=== PATIENT | male | born 1945 | race Caucasian/White ===

== ENCOUNTER 2017-05-02 13:45 | Emergency (ER) | payer MEDICARE ==
[2017-05-02 14:32] VITALS: BP 133/69
--- NOTE | 2017-05-02 15:33 | EDM.PDOC ---
ED HPI GENERAL MEDICAL PROBLEM - General Chief Complaint: Back Pain or Injury Stated Complaint: BACK PAIN Time Seen by Provider: 05/02/17 14:21 Source of Information: Reports: Patient History Limitations: Reports: No Limitations - History of Present Illness INITIAL COMMENTS - FREE TEXT/NARRATIVE: The patient presents with low back pain and neck pain and anxiety. The patient has been having problems with his neck and low back. He is scheduled to see Dr Boyd later in the month. He has been anxious and having more pain. He has been on clonazepam for 30 years. This was stopped a few weeks ago. He is anxious from it. He has no chest pain or shortness of breath. He has no nausea or vomiting. He has no abdominal pain. He has no numbness or weakness, bowel or bladder problems. Onset: Gradual Duration: Week(s): (2) Quality: Reports: Sharp Severity: Moderate Improves with: Reports: None Worsens with: Reports: Movement Associated Symptoms: Reports: No Other Symptoms Neck Pain Score (Numeric/FACES): 10 - Related Data Allergies Allergy/AdvReac Type Severity Reaction Status Date / Time No Known Allergies Allergy Verified 07/11/16 11:16 Home Meds: Home Meds Aspirin [Adult Low Dose Aspirin EC] 81 mg PO DAILY 05/02/17 [History] Cholecalciferol (Vitamin D3) [Vitamin D3] 1,000 units PO DAILY 05/02/17 [History ] ClonazePAM [KlonoPIN] 1 mg PO DAILY PRN #60 tab 05/02/17 [Rx] Doxazosin [Cardura] 2 mg PO DAILY 05/02/17 [History] Meloxicam [Mobic] 15 mg PO DAILY 05/02/17 [History] Metoprolol Succinate [Toprol XL] 200 mg PO DAILY 05/02/17 [History] Multivitamin with Minerals [Multiple Vitamin] 1 tab PO DAILY 05/02/17 [History] Thiamine HCl [B-1] 100 mg PO DAILY 05/02/17 [History] amLODIPine [Norvasc] 10 mg PO BEDTIME 05/02/17 [History] Past Medical History Cardiovascular History: Reports: Hypertension Respiratory History: Reports: COPD, Other (See Below) Other Respiratory History: not smoking related Genitourinary History: Reports: Other (See Below) Other Genitourinary History: prostate cancer history Musculoskeletal History: Reports: Back Pain, Chronic Other Musculoskeletal History: Degenerative disc disease Psychiatric History: Reports: Anxiety Oncologic (Cancer) History: Reports: Prostate Social & Family History - Tobacco Use Smoking Status *Q: Never Smoker - Caffeine Use Caffeine Use: Reports: Soda - Alcohol Use Days Per Week of Alcohol Use: 6 Number of Drinks Per Day: 2 Total Drinks Per Week: 12 - Recreational Drug Use Recreational Drug Use: No ED ROS GENERAL - Review of Systems Review Of Systems: See Below Constitutional: Reports: No Symptoms HEENT: Reports: No Symptoms Respiratory: Reports: No Symptoms Cardiovascular: Reports: No Symptoms Endocrine: Reports: No Symptoms GI/Abdominal: Reports: No Symptoms : Reports: No Symptoms Musculoskeletal: Reports: Neck Pain, Back Pain Neurological: Reports: No Symptoms ED EXAM,LOWER BACK PAIN/INJURY - Physical Exam Exam: See Below Exam Limited By: No Limitations General Appearance: Alert, No Apparent Distress Ears: Normal External Exam Nose: Normal Inspection Head: Atraumatic, Normocephalic Neck: Normal Inspection Respiratory/Chest: No Respiratory Distress, Lungs Clear, Normal Breath Sounds Cardiovascular: Regular Rate, Rhythm, No Edema, No Murmur GI/Abdominal: Soft, Non-Tender, No Organomegaly, No Mass Back Exam: Other (Pain upon palpation to his neck and low back.) Course - Vital Signs Last Recorded V/S: Last Vital Signs Temp 97.6 F 05/02/17 14:28 Pulse 67 05/02/17 14:28 Resp 18 05/02/17 14:28 BP 133/69 05/02/17 14:28 Pulse Ox 100 05/02/17 14:28 Departure - Departure Time of Disposition: 15:35 Disposition: Home, Self-Care 01 Condition: Good Clinical Impression: Anxiety, Neck pain Chronic low back pain Qualifiers: Back pain laterality: unspecified Sciatica presence: without sciatica Qualified Code(s): M54.5 - Low back pain; G89.29 - Other chronic pain; G89.29 - Other chronic pain - Discharge Information Prescriptions: ClonazePAM [KlonoPIN] 1 mg PO DAILY PRN #60 tab PRN Reason: Anxiety Referrals: Pamela Matta, PH[employer]GR[employer] ATTENDANT [Primary Care Provider] - Additional Instructions: Take your medication as prescribed. Keep your appointment with Dr Boyd. Please return if you are worse.
== END 2017-05-02 16:22 | disposition home or self-care (01) ==
LOC: JD.ED 13:45
DX: F41.9 Anxiety disorder, unspecified (principal); M54.2 Cervicalgia; M54.5 Low back pain; G89.29 Other chronic pain; I10 Essential (primary) hypertension; J44.9 Chronic obstructive pulmonary disease, unspecified; Z79.899 Other long term (current) drug therapy; Z79.82 Long term (current) use of aspirin
CPT/HCPCS: 99283

== ENCOUNTER 2017-08-06 08:21 | Emergency (ER) | payer MEDICARE ==
--- NOTE | 2017-08-06 08:48 | EDM.PDOCBH ---
ED HPI GENERAL MEDICAL PROBLEM - General Chief Complaint: Behavioral/Psych Stated Complaint: ANXIETY Time Seen by Provider: 08/06/17 08:47 - History of Present Illness INITIAL COMMENTS - FREE TEXT/NARRATIVE: 71-year-old male presents to the emergency room with multiple complaints. The patient has anxiety and he's had chronic anxiety for many years she's been on clonazepam for over 30 years is done fairly well with this however he's been off his medication for the last several months and is overall situation is gotten worse his back pain causes him lots of grief and tends to aggravate his anxiety. His regular physician and the [facility] both do not want to prescribe anything for anxiety at this point however, according to the patient nothing else has been offered to help alleviate the symptoms. The patient is not having any chest pain chest pressure no abdominal pain no nausea vomiting constipation or diarrhea however the patient get a little nauseous after his anxiety gets worked up. Back Pain Score (Numeric/FACES): 7 - Related Data Allergies Allergy/AdvReac Type Severity Reaction Status Date / Time No Known Allergies Allergy Verified 07/11/16 11:16 Home Meds: Home Meds Aspirin [Adult Low Dose Aspirin EC] 81 mg PO DAILY 05/02/17 [History] Cholecalciferol (Vitamin D3) [Vitamin D3] 1,000 units PO DAILY 05/02/17 [History ] ClonazePAM [KlonoPIN] 1 mg PO DAILY PRN #60 tab 05/02/17 [Rx] Doxazosin [Cardura] 2 mg PO DAILY 05/02/17 [History] Meloxicam [Mobic] 15 mg PO DAILY 05/02/17 [History] Metoprolol Succinate [Toprol XL] 200 mg PO DAILY 05/02/17 [History] Multivitamin with Minerals [Multiple Vitamin] 1 tab PO DAILY 05/02/17 [History] Thiamine HCl [B-1] 100 mg PO DAILY 05/02/17 [History] amLODIPine [Norvasc] 10 mg PO BEDTIME 05/02/17 [History] LORazepam [Ativan] 0.5 mg PO Q12H PRN #15 tablet 08/06/17 [Rx] Tamsulosin HCl [Flomax] 0.4 mg PO DAILY 08/06/17 [History] Past Medical History Cardiovascular History: Reports: Hypertension Respiratory History: Reports: COPD, Other (See Below) Other Respiratory History: not smoking related Genitourinary History: Reports: Other (See Below) Other Genitourinary History: prostate cancer history Musculoskeletal History: Reports: Back Pain, Chronic Other Musculoskeletal History: Degenerative disc disease Psychiatric History: Reports: Anxiety Oncologic (Cancer) History: Reports: Prostate Social & Family History - Tobacco Use Smoking Status *Q: Never Smoker - Caffeine Use Caffeine Use: Reports: Soda - Alcohol Use Days Per Week of Alcohol Use: 6 Number of Drinks Per Day: 2 Total Drinks Per Week: 12 - Recreational Drug Use Recreational Drug Use: No ED ROS GENERAL - Review of Systems Review Of Systems: See Below Constitutional: Reports: No Symptoms. Denies: Fever, Chills HEENT: Reports: No Symptoms Respiratory: Reports: No Symptoms Cardiovascular: Reports: No Symptoms GI/Abdominal: Reports: Nausea. Denies: Abdominal Pain, Constipation, Diarrhea, Distension : Reports: No Symptoms Musculoskeletal: Reports: Back Pain, Other (It sounds like he has multiple arthritic issues) Skin: Reports: No Symptoms Neurological: Reports: No Symptoms ED EXAM, BEHAVIORAL HEALTH - Physical Exam Exam: See Below Exam Limited By: No Limitations General Appearance: Alert, No Apparent Distress Head: Atraumatic, Normocephalic Neck: Normal Inspection, Supple, Non-Tender, Full Range of Motion Respiratory/Chest: No Respiratory Distress, Lungs Clear, Normal Breath Sounds Cardiovascular: Normal Peripheral Pulses, Regular Rate, Rhythm, No Edema, No Murmur GI/Abdominal: Normal Bowel Sounds, Soft, Non-Tender Extremities: Normal Inspection, No Pedal Edema Neurological: Alert, Normal Mood/Affect, Normal Cognition COURSE, BEHAVIORAL HEALTH COMP - Course Vital Signs: Last Vital Signs Temp 36.3 C 08/06/17 08:29 Pulse 86 08/06/17 08:29 Resp 20 08/06/17 08:29 BP Pulse Ox 99 08/06/17 08:29 Re-Assessment/Re-Exam: The patient has long-term degenerative joint disease it is uncertain whether the meloxicam is working I have recommended to the patient that he try Tylenol 650 mg 4 times a day give this several days and see if this helps. For his anxiety I can understand the risk of long-term benzodiazepines however the patient is losing functional abilities excessive concerns of his anxiety and symptoms of his anxieties not get any sleep I been offered low-dose lorazepam once or twice daily for the short term to see if this works he also stresses that his back pain seems to trigger his anxiety so if the Tylenol gets control of his back pain may be he does not need as aggressive anxiety treatment the near future. Other considerations the patient's is not sure he is getting benefit from the meloxicam with the side effects from this a trial off of this may be considered if the patient's get some relief from Tylenol. Departure - Departure Time of Disposition: 09:14 Disposition: Home, Self-Care 01 Clinical Impression: Anxiety, Degenerative joint disease (DJD) of lumbar spine - Discharge Information Prescriptions: LORazepam [Ativan] 0.5 mg PO Q12H PRN #15 tablet PRN Reason: Anxiety Referrals: Kylah Matta MD [Primary Care Provider] - Forms: ED Department Discharge Additional Instructions: Return to the emergency room with any questions problems worsening symptoms. Use Tylenol 650 mg 4 times daily for arthritis pain it may take a while for this to show benefit. He been started on Ativan this is similar to the clonazepam. He is a dominant very limited basis. It is my hopes that her back pain will improve with the Tylenol. It seems that the back pain triggers the anxiety and if we can control the back pain better hopefully the anxiety will be less of an issue for you.
== END 2017-08-06 09:29 | disposition home or self-care (01) ==
LOC: JD.ED 08:21
DX: F41.9 Anxiety disorder, unspecified (principal); M47.816 Spondylosis without myelopathy or radiculopathy, lumbar region; I10 Essential (primary) hypertension; J44.9 Chronic obstructive pulmonary disease, unspecified; Z79.899 Other long term (current) drug therapy; Z79.82 Long term (current) use of aspirin
CPT/HCPCS: 99283

== ENCOUNTER 2017-11-15 09:54 | Emergency (ER) | payer MEDICARE ==
[2017-11-15 10:03] VITALS: BP 176/99
[2017-11-15] MEDS ORDERED: LORazepam 0.5 MG Tab PO ONE (10:22)
[2017-11-15] MEDS ORDERED: Sodium Chloride 0.9% 10 ML Syringe FLUSH PRN (10:22)
[2017-11-15] MEDS ORDERED: HYDROmorphone 0.5 MG/0.5 ML SYRINGE IVPUSH ONE (10:22)
[2017-11-15] MEDS ORDERED: Sodium Chloride 0.9% 1,000 ML IV SCH ×2 (10:30→14:30)
--- NOTE | 2017-11-15 10:59 | EDM.PDOC ---
ED HPI GENERAL MEDICAL PROBLEM - General Chief Complaint: Back Pain or Injury Stated Complaint: [facility] Time Seen by Provider: 11/15/17 10:05 Source of Information: Reports: Patient, EMS, RN Notes Reviewed - History of Present Illness INITIAL COMMENTS - FREE TEXT/NARRATIVE: 72-year-old male has been brought in by ambulance for evaluation of low back pain. He does suffer from chronic low back pain apparently secondary to a lot of degenerative disease of his low back. He states he has seen multiple providers, has had CAT scans, MRIs, Dr. Boyd with the spine clinic in [place] and "nothing gets done". However when asked what he is currently taking for his low back discomfort he states he's been off of all meds including his meds for hypertension for a month or longer. He states anxiety also is a big issue for him and any providers have "stopped prescribing the clonazepam that he is taken for what sounds like around 20 or 30 years. Therefore he is stop taking all other meds as well the pain is primarily in his low back, worse with motion. He states his appetite is down, not eating or drinking well the last few days. There's been no recent fall or injury. The pain does not radiate down into either leg. Lower Back Pain Score (Numeric/FACES): 5 - Related Data Allergies Allergy/AdvReac Type Severity Reaction Status Date / Time No Known Allergies Allergy Verified 11/15/17 09:59 Home Meds: Home Meds Cholecalciferol (Vitamin D3) [Vitamin D3] 1,000 units PO BID 05/02/17 [History] Meloxicam [Mobic] 15 mg PO DAILY 05/02/17 [History] Metoprolol Succinate [Toprol XL] 100 mg PO DAILY 05/02/17 [History] Multivitamin with Minerals [Multiple Vitamin] 1 tab PO DAILY 05/02/17 [History] Thiamine HCl [B-1] 100 mg PO DAILY 05/02/17 [History] amLODIPine [Norvasc] 10 mg PO BEDTIME 05/02/17 [History] LORazepam [Ativan] 0.5 mg PO Q12H PRN #15 tablet 08/06/17 [Rx] Tamsulosin HCl [Flomax] 0.4 mg PO DAILY 08/06/17 [History] ClonazePAM [KlonoPIN] 0.5 mg PO BID #20 tab 11/15/17 [Rx] ClonazePAM [KlonoPIN] 1 mg PO BID PRN 11/15/17 [History] Metoprolol Succinate [Toprol XL 100mg] 100 mg PO DAILY #30 tab.er 11/15/17 [Rx] Sertraline HCl 50 mg PO DAILY 11/15/17 [History] amLODIPine [Norvasc] 5 mg PO BEDTIME #30 tablet 11/15/17 [Rx] Past Medical History HEENT History: Reports: Impaired Vision Cardiovascular History: Reports: Hypertension Respiratory History: Reports: COPD, Other (See Below) Other Respiratory History: not smoking related Genitourinary History: Reports: Other (See Below) Other Genitourinary History: prostate cancer history Musculoskeletal History: Reports: Back Pain, Chronic Other Musculoskeletal History: Degenerative disc disease Psychiatric History: Reports: Anxiety Oncologic (Cancer) History: Reports: Prostate - Past Surgical History Oncologic Surgical History: Reports: None Social & Family History - Tobacco Use Smoking Status *Q: Never Smoker - Caffeine Use Caffeine Use: Reports: Soda - Recreational Drug Use Recreational Drug Use: No ED ROS GENERAL - Review of Systems Review Of Systems: See Below Constitutional: Denies: Fever, Chills HEENT: Reports: No Symptoms Respiratory: Denies: Shortness of Breath Cardiovascular: Denies: Chest Pain GI/Abdominal: Reports: Decreased Appetite. Denies: Abdominal Pain, Nausea, Vomiting Musculoskeletal: Reports: Back Pain. Denies: Leg Pain Neurological: Denies: Numbness, Tingling Psychiatric: Reports: Anxiety ED EXAM,LOWER BACK PAIN/INJURY - Physical Exam Exam: See Below General Appearance: Alert, Anxious, Moderate Distress Eye Exam: Bilateral Eye: PERRL Throat/Mouth: Normal Inspection, Normal Oropharynx Head: Atraumatic. No: Facial Swelling Neck: Supple Respiratory/Chest: No Respiratory Distress, Lungs Clear, Normal Breath Sounds Cardiovascular: Tachycardia GI/Abdominal: Soft, Non-Tender Back Exam: Paraspinal Tenderness, Vertebral Tenderness Extremities: Normal Inspection (Low mid back), Normal Range of Motion (Low mid back). No: Pedal Edema, Leg Pain Neurological: Alert, No Motor/Sensory Deficits Course - Vital Signs Last Recorded V/S: Last Vital Signs Temp 99.9 F 11/15/17 09:59 Pulse 130 H 11/15/17 09:59 Resp 25 H 11/15/17 09:59 BP 176/99 H 11/15/17 09:59 Pulse Ox 97 11/15/17 09:59 - Orders/Labs/Meds Orders: Active Orders 24 hr Category Date Time Status Peripheral IV Care [RC] . DIRECTED Care 11/15/17 10:23 Active Sodium Chloride 0.9% [Normal Saline] 1,000 ml Med 11/15/17 10:30 Active IV ASDIRECTED Sodium Chloride 0.9% [Normal Saline] 1,000 ml Med 11/15/17 14:30 Active IV ONETIME Sodium Chloride 0.9% [Saline Flush] Med 11/15/17 10:22 Active 10 ml FLUSH ASDIRECTED PRN Peripheral IV Insertion Adult [OM.PC] Stat Oth 11/15/17 10:22 Ordered Medication Orders Sodium Chloride (Normal Saline) 1,000 mls @ 150 mls/hr IV ASDIRECTED JANESSA Last Admin: 11/15/17 10:55 Dose: 150 mls/hr Sodium Chloride (Normal Saline) 1,000 mls @ 999 mls/hr IV ONETIME JANESSA Sodium Chloride (Saline Flush) 10 ml FLUSH ASDIRECTED PRN PRN Reason: Keep Vein Open Last Admin: 11/15/17 10:05 Dose: 10 ml Labs: Laboratory Tests 11/15/17 11/15/17 11/15/17 Range/Units 10:03 10:05 10:05 WBC 15.22 H (4.23-9.07) K/mm3 RBC 4.32 L (4.63-6.08) M/mm3 Hgb 15.5 (13.7-17.5) gm/L Hct 44.9 (40.1-51.0) % MCV 103.9 H (79.0-92.2) fl MCH 35.9 H (25.7-32.2) pg MCHC 34.5 (32.2-35.5) g/dl RDW Std Deviation 48.6 H (35.1-43.9) fL Plt Count 156 L (163-337) K/mm3 MPV 9.1 L (9.4-12.3) fl Neut % (Auto) 82.9 H (34.0-67.9) % Lymph % (Auto) 5.6 L (21.8-53.1) % [place] % (Auto) 11.0 (5.3-12.2) % Eos % (Auto) 0 L (0.8-7.0) Baso % (Auto) 0.1 (0.1-1.2) % Neut # (Auto) 12.63 H (1.78-5.38) K/mm3 Lymph # (Auto) 0.85 L (1.32-3.57) K/mm3 [place] # (Auto) 1.67 H (0.30-0.82) K/mm3 Eos # (Auto) 0.00 L (0.04-0.54) K/mm3 Baso # (Auto) 0.01 (0.01-0.08) K/mm3 Manual Slide Review Abnormal smear Sodium 138 (136-145) mEq/L Potassium 3.6 (3.5-5.1) mEq/L Chloride 97 L (98-107) mEq/L Carbon Dioxide 25 (21-32) mEq/L Anion Gap 19.6 H (5-15) BUN 36 H (7-18) mg/dL Creatinine 1.9 H (0.7-1.3) mg/dL Est Cr Clr Drug Dosing 33.82 mL/min Estimated GFR (MDRD) 35 (>60) mL/min BUN/Creatinine Ratio 18.9 H (14-18) Glucose 157 H (80-115) mg/dL POC Glucose 158 H (80-115) mg/dL Calcium 9.4 (8.5-10.1) mg/dL Total Bilirubin 2.8 H (0.2-1.0) mg/dL AST 45 H (15-37) U/L ALT 74 H (16-63) U/L Alkaline Phosphatase 87 (46-116) U/L Total Protein 7.3 (6.4-8.2) g/dl Albumin 3.4 (3.4-5.0) g/dl Globulin 3.9 gm/dL Albumin/Globulin Ratio 0.9 L (1-2) Ethyl Alcohol (0.00) gm% 18 Range/Units 10:38 WBC (4.23-9.07) K/mm3 RBC (4.63-6.08) M/mm3 Hgb (13.7-17.5) gm/L Hct (40.1-51.0) % MCV (79.0-92.2) fl MCH (25.7-32.2) pg MCHC (32.2-35.5) g/dl RDW Std Deviation (35.1-43.9) fL Plt Count (163-337) K/mm3 MPV (9.4-12.3) fl Neut % (Auto) (34.0-67.9) % Lymph % (Auto) (21.8-53.1) % [place] % (Auto) (5.3-12.2) % Eos % (Auto) (0.8-7.0) Baso % (Auto) (0.1-1.2) % Neut # (Auto) (1.78-5.38) K/mm3 Lymph # (Auto) (1.32-3.57) K/mm3 [place] # (Auto) (0.30-0.82) K/mm3 Eos # (Auto) (0.04-0.54) K/mm3 Baso # (Auto) (0.01-0.08) K/mm3 Manual Slide Review Sodium (136-145) mEq/L Potassium (3.5-5.1) mEq/L Chloride (98-107) mEq/L Carbon Dioxide (21-32) mEq/L Anion Gap (5-15) BUN (7-18) mg/dL Creatinine (0.7-1.3) mg/dL Est Cr Clr Drug Dosing mL/min Estimated GFR (MDRD) (>60) mL/min BUN/Creatinine Ratio (14-18) Glucose (80-115) mg/dL POC Glucose (80-115) mg/dL Calcium (8.5-10.1) mg/dL Total Bilirubin (0.2-1.0) mg/dL AST (15-37) U/L ALT (16-63) U/L Alkaline Phosphatase (46-116) U/L Total Protein (6.4-8.2) g/dl Albumin (3.4-5.0) g/dl Globulin gm/dL Albumin/Globulin Ratio (1-2) Ethyl Alcohol 0.00 (0.00) gm% Meds: Medications Generic Name Dose Route Start Last Admin Trade Name Freq PRN Reason Stop Dose Admin Sodium Chloride 1,000 mls @ 150 mls/hr 11/15/17 10:30 11/15/17 10:55 Normal Saline IV 150 mls/hr ASDIRECTED JANESSA Administration Sodium Chloride 1,000 mls @ 999 mls/hr 11/15/17 14:30 Normal Saline IV ONETIME JANESSA Sodium Chloride 10 ml 11/15/17 10:22 11/15/17 10:05 Saline Flush FLUSH 10 ml ASDIRECTED PRN Administration Keep Vein Open Discontinued Medications Generic Name Dose Route Start Last Admin Trade Name Maria Eugenia PRN Reason Stop Dose Admin Hydromorphone HCl 0.5 mg 11/15/17 10:22 11/15/17 10:53 Dilaudid IVPUSH 11/15/17 10:23 0.5 mg ONETIME ONE Administration Lorazepam 0.5 mg 11/15/17 10:22 11/15/17 11:00 Ativan PO 11/15/17 10:23 0.5 mg ONETIME ONE Administration - Re-Assessments/Exams Free Text/Narrative Re-Assessment/Exam: 11/15/17 17:44. Keerthi, one of our social workers informed me that EMS did file a protective service documented with great concern about condition of his home. It was very cluttered, dirty, unclean. There is concerned that he was not cooking or eating nutritionally or performing adequate personal hygiene. He does live alone. He has no family anywhere nearby. 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 When questioned about alcohol usage today he states "I have not been drinking alcohol for about 3 weeks but has regularly drank whiskey in the past. He is a . Keerthi, one of our social workers has informed him that there are benefits available to him as a that would not otherwise be available. For example he does not need to be homebound for some home health and nurse aide assistance. He is agreeable for further evaluation of benefits and to get some of these services started. After given 0.5 mg Dilaudid IV 0.5 mg Ativan IV he slept for much of the next 4 hours. He has eaten. He feels much better. We've given him 2 L of fluid for rehydration. Abstain show renal insufficiency, moderate dehydration. Blood alcohol did come back at 0. He was able to get up and ambulated quite well with a walker. Even though providers have been hesitant to continue prescribing clonazepam for him it appears that his answer is to drink more alcohol. It would seem reasonable to allow him to go back on a lower dose of clonazepam at least in the short-term , get some home health and nurse aide assistance to help him be more compliant with taking his medication. It appears that he's been totally off of all of his meds including his antihypertensive for about the past 6 weeks. Patient is agreeable to all of this. Discharge instructions as documented. Departure - Departure Time of Disposition: 16:31 Disposition: Home, Self-Care 01 Condition: Fair Clinical Impression: Renal insufficiency, Dehydration, Anxiety Low back pain Qualifiers: Chronicity: chronic Back pain laterality: midline Sciatica presence: without sciatica Qualified Code(s): M54.5 - Low back pain - Discharge Information Prescriptions: amLODIPine [Norvasc] 5 mg PO BEDTIME #30 tablet ClonazePAM [KlonoPIN] 0.5 mg PO BID #20 tab Metoprolol Succinate [Toprol XL 100mg] 100 mg PO DAILY #30 tab.er Instructions: Back Pain, Adult, Dehydration, Adult, [id number] Referrals: Kylah Matta MD [Primary Care Provider] - Forms: ED Department Discharge Additional Instructions: Clonazepam 0.5 mg twice daily for low back muscle relaxation and for anxiety, Tylenol 500 mg 3 times daily for low back pain, drink plenty of water to maintain hydration, continue to avoid further alcohol, arrangements have been made for some home health evaluation and assistance. This is a service provided through the [facility] for veterans beyond what you would otherwise qualify for. You need to get back on your blood pressure medications. Amlodipine or Norvasc 5 mg every evening, metoprolol 100 mg every morning. Prescriptions for the amlodipine and metoprolol have been electronically sent to the [facility]. You'll need to bring paper copy for the clonazepam to get that filled. [facility]- up at the [facility] in about one week or with Jennifer at our [facility] medical clinic , call [phone] for appointment. - My Orders Last 24 Hours: My Active Orders 11/15/17 10:22 Sodium Chloride 0.9% [Saline Flush] 10 ml FLUSH ASDIRECTED PRN Peripheral IV Insertion Adult [OM.PC] Stat 11/15/17 10:23 Peripheral IV Care [RC] . DIRECTED 11/15/17 10:30 Sodium Chloride 0.9% [Normal Saline] 1,000 ml IV ASDIRECTED 11/15/17 14:30 Sodium Chloride 0.9% [Normal Saline] 1,000 ml IV ONETIME - Assessment/Plan Last 24 Hours: My Active Orders 11/15/17 10:22 Sodium Chloride 0.9% [Saline Flush] 10 ml FLUSH ASDIRECTED PRN Peripheral IV Insertion Adult [OM.PC] Stat 11/15/17 10:23 Peripheral IV Care [RC] . DIRECTED 11/15/17 10:30 Sodium Chloride 0.9% [Normal Saline] 1,000 ml IV ASDIRECTED 11/15/17 14:30 Sodium Chloride 0.9% [Normal Saline] 1,000 ml IV ONETIME
--- NOTE | 2017-11-15 14:46 | CR ---
Lumbar spine: AP, lateral and cone down lateral views centered to the lumbosacral junction were obtained. Vertebral body heights and disc spaces are maintained. Scattered endplate osteophytes are seen. Mild scoliosis is noted. Bony structures are osteopenic. Pedicles as well as transverse and spinous processes are intact. Calcification is seen slightly superior to the L3-L4 disc space on the right side. This could represent an obstructing ureteral stone or represent an incidental calcification outside the ureter. Please correlate with the patient's symptoms. Radiation implant seeds are noted. Sacroiliac joints are within normal limits. Impression: 1. Calcification slightly superior to the L3-L4 disc on the right side as described above. 2. Mild scoliosis and degenerative change noted within the spine. 3. Other incidental findings. Diagnostic code #3
== END 2017-11-15 17:08 | disposition home or self-care (01) ==
LOC: JD.ED 09:54
DX: M54.5 Low back pain (principal); N28.9 Disorder of kidney and ureter, unspecified; E86.0 Dehydration; F41.9 Anxiety disorder, unspecified; I10 Essential (primary) hypertension; J44.9 Chronic obstructive pulmonary disease, unspecified; Z79.899 Other long term (current) drug therapy
CPT/HCPCS: 36415; 72100; 80053; 82962; 85025; 96361; 96374; 99285; A9270; G0480; J1170; J7040; J7050; 99284

== ENCOUNTER 2021-08-02 08:27 | Inpatient (IN) | payer MEDICARE, OTHER ==
[2021-08-02] MEDS ORDERED: Dextrose 5%-Lactated Ringers 1,000 ML IV SCH (08:45)
[2021-08-02] MEDS ORDERED: Metoclopramide 10 MG/2 ML SDV IVPUSH ONE (09:13)
[2021-08-02] MEDS ORDERED: Thiamine 200 MG/2 ML MDV IVPUSH ONE (09:13)
[2021-08-02] MEDS ORDERED: Cefepime 2 GM in Sodium Chloride 0.9% 50 ML IV ONE (10:29)
[2021-08-02] MEDS ORDERED: Dextrose 5%-Lact Ringers w/KCl 1,000 ML IV SCH (12:00)
[2021-08-02] MEDS ORDERED: Ondansetron 4 MG/2 ML SDV IV PRN (14:22)
[2021-08-02] MEDS ORDERED: LORazepam 2 MG/ML SDV IV SCH (14:30)
[2021-08-02] MEDS ORDERED: Albumin 25% 12.5 GM/50 ML BAG IV ONE (15:30)
[2021-08-02] MEDS: Sodium Chloride 0.9% 1,000 ML IV SCH (16:40)
[2021-08-02] MEDS: oxyCODONE 5 MG Tab PO PRN (21:44)
[2021-08-03] MEDS: Sodium Chloride 0.9% 1,000 ML IV SCH ×2 (00:55→10:07)
[2021-08-03] MEDS: Thiamine 200 MG/2 ML MDV IV SCH (09:07)
[2021-08-03] MEDS: Metoprolol Succinate 50 MG Tab.ER PO SCH (09:07)
[2021-08-03] MEDS: Potassium Chloride 20 MEQ Tab.ER PO SCH ×2 (09:07→21:46)
[2021-08-03] MEDS: Tamsulosin 0.4 MG Cap.ER PO SCH (09:07)
[2021-08-03] MEDS: Cefepime 2 GM in Sodium Chloride 0.9% 50 ML IV SCH (10:07)
[2021-08-03] MEDS: oxyCODONE 5 MG Tab PO PRN (10:15)
[2021-08-03] MEDS: Lactulose Soln 10 GM/15 ML 30 ML UD Cup PO SCH ×2 (12:01→21:46)
[2021-08-03] MEDS: Lidocaine 4% 1 each Patch TOP SCH (12:01)
[2021-08-04] MEDS: Metoprolol Succinate 50 MG Tab.ER PO SCH (08:25)
[2021-08-04] MEDS: Tamsulosin 0.4 MG Cap.ER PO SCH (08:26)
[2021-08-04] MEDS: Thiamine 200 MG/2 ML MDV IV SCH (08:27)
[2021-08-04] MEDS: Lidocaine 4% 1 each Patch TOP SCH (08:28)
[2021-08-04] MEDS: Lactulose Soln 10 GM/15 ML 30 ML UD Cup PO SCH ×2 (08:33→20:06)
[2021-08-04] MEDS ORDERED: Potassium Chloride 20 MEQ Tab.ER PO ONE (09:00)
[2021-08-04] MEDS ORDERED: Albumin 25% 12.5 GM/50 ML BAG IV ONE (09:30)
[2021-08-04] MEDS: Cefepime 2 GM in Sodium Chloride 0.9% 50 ML IV SCH (11:45)
[2021-08-05] MEDS: Tamsulosin 0.4 MG Cap.ER PO SCH (08:05)
[2021-08-05] MEDS: Thiamine 100 MG Tab PO SCH (08:05)
[2021-08-05] MEDS: Metoprolol Succinate 50 MG Tab.ER PO SCH (08:05)
[2021-08-05] MEDS: Folic Acid 1 MG Tab PO SCH (08:05)
[2021-08-05] MEDS: Lactulose Soln 10 GM/15 ML 30 ML UD Cup PO SCH ×2 (08:06→20:38)
[2021-08-05] MEDS: Lidocaine 4% 1 each Patch TOP SCH (08:06)
[2021-08-05] MEDS: Cefepime 2 GM in Sodium Chloride 0.9% 50 ML IV SCH ×2 (08:14→20:38)
[2021-08-05] MEDS ORDERED: Albumin 25% 12.5 GM/50 ML BAG IV ONE (09:00)
[2021-08-05] MEDS ORDERED: Potassium Chloride 20 MEQ Tab.ER PO ONE (12:00)
[2021-08-05] MEDS: oxyCODONE 5 MG Tab PO PRN (17:14)
[2021-08-06] MEDS: Metoprolol Succinate 50 MG Tab.ER PO SCH (08:21)
[2021-08-06] MEDS: Tamsulosin 0.4 MG Cap.ER PO SCH (08:22)
[2021-08-06] MEDS: Thiamine 100 MG Tab PO SCH (08:22)
[2021-08-06] MEDS: Folic Acid 1 MG Tab PO SCH (08:22)
[2021-08-06] MEDS: Lactulose Soln 10 GM/15 ML 30 ML UD Cup PO SCH ×2 (08:22→20:29)
[2021-08-06] MEDS: Cefepime 2 GM in Sodium Chloride 0.9% 50 ML IV SCH ×2 (08:23→20:28)
[2021-08-06] MEDS: Lidocaine 4% 1 each Patch TOP SCH (08:25)
[2021-08-06] MEDS: Temazepam 7.5 MG Cap PO PRN (21:55)
[2021-08-07] MEDS: Tamsulosin 0.4 MG Cap.ER PO SCH (08:00)
[2021-08-07] MEDS: Thiamine 100 MG Tab PO SCH (08:00)
[2021-08-07] MEDS: Lactulose Soln 10 GM/15 ML 30 ML UD Cup PO SCH ×2 (08:00→20:35)
[2021-08-07] MEDS: Folic Acid 1 MG Tab PO SCH (08:00)
[2021-08-07] MEDS: Metoprolol Succinate 50 MG Tab.ER PO SCH (08:01)
[2021-08-07] MEDS: Lidocaine 4% 1 each Patch TOP SCH (08:02)
[2021-08-08] MEDS: Lidocaine 4% 1 each Patch TOP SCH (09:00)
[2021-08-08] MEDS: Metoprolol Succinate 50 MG Tab.ER PO SCH (09:01)
[2021-08-08] MEDS: Lactulose Soln 10 GM/15 ML 30 ML UD Cup PO SCH ×2 (09:01→20:07)
[2021-08-08] MEDS: Folic Acid 1 MG Tab PO SCH (09:03)
[2021-08-08] MEDS: Tamsulosin 0.4 MG Cap.ER PO SCH (09:03)
[2021-08-08] MEDS: Thiamine 100 MG Tab PO SCH (09:03)
[2021-08-08] MEDS: oxyCODONE 5 MG Tab PO PRN (18:48)
[2021-08-08] MEDS: Temazepam 7.5 MG Cap PO PRN (20:07)
[2021-08-09] MEDS: Lactulose Soln 10 GM/15 ML 30 ML UD Cup PO SCH (07:59)
[2021-08-09] MEDS: Thiamine 100 MG Tab PO SCH (07:59)
[2021-08-09] MEDS: Metoprolol Succinate 50 MG Tab.ER PO SCH (07:59)
[2021-08-09] MEDS: oxyCODONE 5 MG Tab PO PRN (08:00)
[2021-08-09] MEDS: Tamsulosin 0.4 MG Cap.ER PO SCH (08:00)
[2021-08-09] MEDS: Folic Acid 1 MG Tab PO SCH (08:00)
[2021-08-09] MEDS: Lidocaine 4% 1 each Patch TOP SCH (08:01)
[2021-08-09 12:13] VITALS: BP 127/60; PULSE 76
== END 2021-08-09 13:00 | DRG 872 ==
LOC: JD.ED 08:27 → JD.ICU 12:48
PROVIDERS: ADMIT Emergency Medicine; ATTEND Internal Medicine
DX: K70.30 Alcoholic cirrhosis of liver without ascites (principal); E87.2 Acidosis; A41.9 Sepsis, unspecified organism; F10.29 Alcohol dependence with unspecified alcohol-induced disorder; F10.20 Alcohol dependence, uncomplicated; Y90.0 Blood alcohol level of less than 20 mg/100 ml; N17.9 Acute kidney failure, unspecified; M62.82 Rhabdomyolysis; N18.4 Chronic kidney disease, stage 4 (severe); F10.239 Alcohol dependence with withdrawal, unspecified; K70.10 Alcoholic hepatitis without ascites; K70.40 Alcoholic hepatic failure without coma; E88.89 Other specified metabolic disorders; D72.829 Elevated white blood cell count, unspecified; E86.0 Dehydration; M54.2 Cervicalgia; H54.7 Unspecified visual loss; Z20.822 Contact with and (suspected) exposure to COVID-19; J44.9 Chronic obstructive pulmonary disease, unspecified; G89.29 Other chronic pain; M54.9 Dorsalgia, unspecified; M19.90 Unspecified osteoarthritis, unspecified site; F41.9 Anxiety disorder, unspecified; I12.9 Hypertensive chronic kidney disease with stage 1 through stage 4 chronic kidney disease, or unspecified chronic kidney disease; F03.90 Unspecified dementia, unspecified severity, without behavioral disturbance, psychotic disturbance, mood disturbance, and anxiety; D64.9 Anemia, unspecified; Z66 Do not resuscitate; R91.1 Solitary pulmonary nodule; W19.XXXA Unspecified fall, initial encounter; Z79.899 Other long term (current) drug therapy; Z85.46 Personal history of malignant neoplasm of prostate; R06.02 Shortness of breath
CPT/HCPCS: 36415; 36600; 70450; 71045; 72125; 72131; 73590; 73630; 74176; 80053; 80307; 81001; 82009; 82140; 82550; 82803; 82977; 83605 ×2; 83690; 83735; 83880; 84484; 85007; 85027; 85610; 85730; 86140; 87040 ×2; 93005; 96365; 96367; 96375; 99285; J0692; J2765; J3411; J3480; J7121; 76705; 76705-26; 80074; 93010; 96366; 97110-GP; 97116-GP; 97162-GP; 97530-GP; A9270-GY; J7030; P9047; U0002